=== PATIENT | female | born 1990 | race Caucasian/White ===

== ENCOUNTER 2018-02-24 18:55 | Emergency (ER) | payer BC ==
[2018-02-24 19:41] LABS: URINE BLOOD (Dip) POC 3+ (NEGATIVE); URINE KETONES (Dip) POC Negative (NEGATIVE); URINE LEUKOCYTE EST (Dip) POC 3+ (NEGATIVE); URINE NITRITE (Dip) POC Positive (NEGATIVE); URINE TOTAL PROTEIN POC 3+ (NEGATIVE)
[2018-02-24 19:41] LABS: URINE PH (Dip) POC 5.5 (5.0-8.5)
== END 2018-02-24 20:08 | disposition home or self-care (01) ==
LOC: E/R 18:55
DX: N30.90 Cystitis, unspecified without hematuria (principal); R30.0 Dysuria
CPT/HCPCS: 81003; 81025; 99283